=== PATIENT | female | born 1975 | race Caucasian/White ===

== ENCOUNTER 2016-07-26 14:48 | Emergency (ER) | payer MEDICARE ==
[2016-07-26 15:13] LABS: BASOPHILS 0.2 % (0-2); HEMATOCRIT 42.1 % (36.0-48.0); IMMATURE GRANULOCYTES 0.1 % (0-5); LYMPHOCYTES 34.8 % (15-50); MCHC 33.3 g/dL (31.0-37.0); MCV 90.1 fL (80.0-100.0); MEAN PLATELET VOLUME 11.4 fL (7.4-10.4); MONOCYTES 5.6 % (2-11); NEUTROPHILS 56.3 % (40-80); PLATELET COUNT 210 10x3/uL (130-400); RBC 4.67 10x6/uL (4.00-5.40); WBC 11.5 10x3/uL (4.8-10.8)
[2016-07-26 15:28] LABS: ALBUMIN 3.4 g/dL (3.4-5.0); ALKALINE PHOSPHATASE 138 U/L (46-116); ALT (SGPT) 24 U/L (10-68); BILIRUBIN - TOTAL 0.28 mg/dL (0.2-1.3); CALC OSMOLALITY 272 mosm/kg (275-300); CALCIUM 8.7 mg/dL (8.5-10.1); CARBON DIOXIDE 20.8 mmol/L (21.0-32.0); CHLORIDE - SERUM 105 mmol/L (98-107); CREATININE - SERUM 0.3 mg/dL (0.6-1.3); GLUCOSE 93 mg/dL (74-106); POTASSIUM - SERUM 3.7 mmol/L (3.5-5.1); PROTEIN - SERUM 7.7 g/dL (6.4-8.2); SODIUM 137 mmol/L (136-145); UREA NITROGEN 10 mg/dL (7-18); eGFR NON AFRICAN AMERICAN > 90 mL/min (90-120)
[2016-07-26 15:38] LABS: CHOL - HDL RATIO 4.4 ratio (2.3-4.1); CHOLESTEROL, TOTAL 172 mg/dL (0-200); CKMB 0.9 U/L (0.0-3.6); CREATINE KINASE 180 UL (21-215); HDL CHOLESTEROL 39 mg/dL (32-96)
[2016-07-26 15:39] LABS: TROPONIN-I < 0.017 ng/mL (0.000-0.060)
[2016-07-26 15:51] LABS: LDL CHOLESTEROL 102 mg/dL (0-100); LDL-HDL RATIO 2.6 ratio (1.5-3.5); TRIGLYCERIDE 159 mg/dL (30-200)
[2016-07-26 17:49] LABS: CREATINE KINASE 166 UL (21-215)
[2016-07-26 17:50] LABS: TROPONIN-I < 0.017 ng/mL (0.000-0.060)
[2016-07-26 18:21] LABS: APPEARANCE CLEAR (CLEAR); BILIRUBIN NEGATIVE (NEGATIVE); COLOR YELLOW (YELLOW); GLUCOSE NEGATIVE (NEGATIVE); KETONE NEGATIVE (NEGATIVE); LEUKOCYTE ESTERASE NEGATIVE (NEGATIVE); NITRITE NEGATIVE (NEGATIVE); PROTEIN NEGATIVE (NEGATIVE); UROBILINOGEN NORMAL (NORMAL)
[2016-07-26 18:25] LABS: UDS - AMPHET NEGATIVE QUAL (NEGATIVE); UDS - BARB NEGATIVE QUAL (NEGATIVE); UDS - BENZO POSITIVE QUAL (NEGATIVE); UDS - COCAINE NEGATIVE QUAL (NEGATIVE); UDS - METH NEGATIVE QUAL (NEGATIVE); UDS - OPIATE NEGATIVE QUAL (NEGATIVE); UDS - PCP NEGATIVE QUAL (NEGATIVE); UDS - THC POSITIVE QUAL (NEGATIVE)
[2016-07-29] MEDS ORDERED: ZOCOR40 MG PO (11:27)
[2016-07-29] MEDS ORDERED: SEROQUEL200 MG PO (11:28)
[2016-07-29] MEDS ORDERED: VALIUM10 MG PO (11:28)
[2016-07-29] MEDS ORDERED: PROZAC40 MG PO (11:29)
[2016-07-29 11:39] VITALS: BMI 33.6
== END 2016-07-26 18:52 | disposition home or self-care (01) ==
LOC: D.ER 14:48
PROVIDERS: Family Medicine
DX: R07.9 Chest pain, unspecified (principal)

== ENCOUNTER → 2016-07-29 10:44 | Outpatient (CLI) | payer MEDICARE ==
[~2016-07-29] VITALS: Ht 167.6 cm; Wt 94.5 kg
--- NOTE | ~2016-07-29 | HEMODYNAMI ---
PATIENT:JESSICA KATZ MEDICAL RECORD: [id number] : 77 LOCATION:[facility] ADMISSION DATE: 07/29/16 Generatedon:07/29/201614:10 Patient name: JESSICA KATZ Patient #: [id number] SSN: : [id number] Date of study: 07/29/2016 Page: Of Hemodynamic Procedure Report Patient Data Patient Demographics Procedure consent was obtained First Name: JESSICA Gender: Female Last Name: GIANNA : 1975 [facility] Initial: BOSSMAN Age: 41 year(s) Patient #: [id number] Race: Additional ID: [id number] Contact details Address: [address] [place] [address] State: [place] City: [facility] [place] Zip code: [address] Past Medical History Allergies Allergen Reaction Date Comments Reported Other allergy 07/29/2016 magalys cifuentes Admission Admission Data Admission Date: 07/29/2016 Admission Time: 10:44 Lab Results Lab Result Date: 07/29/2016 Lab Result Time: 11:40 Biochemistry Name Units Result Min Max BUN mg/dl 7 --(*---)-- 7 18 Creatinine mg/dl 0.8 --(-*--)-- 0.6 1.3 CBC Name Units Result Min Max Hematocrit % 41.7 -*(----)-- 42 54 Hemoglobin g/dl 14 --(*---)-- 13.5 17.5 Procedure Procedure Types Cath Procedure Diagnostic Procedure LHC LHC w/Coronaries Miscellaneous Procedures Moderate Sedation up to 15 minutes Procedure Description Procedure Date Procedure Date: 07/29/2016 Procedure Start Time: 13:59 Procedure End Time: 14:09 Procedure Staff Name Function Jt Johnson MD Performing Physician Munira Yu RT Scrub Yani Chiu RN Nurse Maximilian Bragg RT Monitor Procedure Data Cath Procedure Fluoroscopy Diagnostic fluoroscopy Total fluoroscopy Time: 1 time: 1 min min Diagnostic fluoroscopy Total fluoroscopy dose: 160 dose: 160 mGy mGy Contrast Material Contrast Material Type Amount (ml) Isovue 300 56 Entry Location Entry Primary Successful Side Size Upsize Upsize Entry Closure Succes sful Closure Location (Fr) 1 (Fr) 2 (Fr) Remarks Device Remarks Femoral Right 5 Fr Exoseal artery Estimated blood loss: 5 ml Diagnostic catheters Device Type Used For End Catheter Placement Cordis 5Fr JL 4.0 Procedure Catheter (MP) Cordis 5Fr 3DRC Catheter Procedure (MP) Cordis 5Fr Pigtail Procedure Catheter (MP) Procedure Complications No complications Procedure Medications Medication Administration Route Dosage Oxygen NC 2 l/min Heparin Flush Bag added to field 2 bags (1000units/500ml NS) Lidocaine 2% added to field 20 Versed I.V. 2 mg Fentanyl I.V. 100 mcg Versed I.V. 2 mg Fentanyl I.V. 100 mcg Versed I.V. 2 mg Fentanyl I.V. 100 mcg Versed I.V. 1 mg Fentanyl I.V. 50 mcg Hemodynamics Rest HGB: 14 (g/dl) Heart Rate: 57 (bpm) Pressure Samples Time Site Value (mmHg) Purpose Heart Use Rate(bpm) 14:04 LV 96/4,17 Snapshot 59 Gradients Valve Time Site Site Mean SEP/DFP Peak To Heart Use 1 2 (mmHg) (sec/min) Peak Rate (mmHg) (bpm) Aortic 14:05 LV AO 71 Snapshots Pre Cath Intra NCS Post Cath Vital Signs Time Heart Resp SPO2 etCO2 MT5sdss NIBP Rhythm Pain Sedation Rate (ipm) (%) (mmHg) (mmHg) (mmHg) Status Level (bpm) 13:39:50 54 16 97 0 0 100/62(74) NSR 0 (11) 10(A) , No pain 13:43:57 61 22 98 0 0 107/69(86) NSR 0 (11) 10(A) , No pain 13:48:05 64 18 98 0 0 106/69(77) NSR 0 (11) 10(A) , No pain 13:53:04 66 23 97 0 0 Measuring NSR 0 (11) 10(A) , No pain 13:53:08 65 23 97 0 0 118/69(87) NSR 0 (11) 10(A) , No pain 13:57:20 66 25 97 0 0 109/60(82) NSR 0 (11) 10(A) , No pain 14:01:28 68 18 98 0 0 107/70(87) NSR 0 (11) 10(A) , No pain 14:05:32 68 18 99 0 0 90/69(79) NSR 0 (11) 10(A) , No pain 14:10:17 68 16 96 0 0 102/71(82) NSR 0 (11) 10(A) , No pain Medications Time Medication Route Dose Verified Delivered Reason Notes Effec tiveness by by 13:48:16 Oxygen NC 2 Jt Yani Per l/min [facility] RN physician 13:48:26 Heparin Flush added 2 Jt Jt used for Bag to bags [facility] procedure (1000units/500ml field MD YUSUF NS) 13:48:34 Lidocaine 2% added 20ml Jt Jt used for to vial [facility] procedure field MD YSUUF 13:58:21 Versed I.V. 2 [facility] 13:58:26 Fentanyl I.V. 100 Jt Yani for mcg [facility] RN sedation 14:00:05 Versed I.V. 2 mg Jt Yani for [facility] RN sedation 14:00:11 Fentanyl I.V. 100 Jt Yani for mcg [facility] RN sedation 14:03:28 Versed I.V. 2 mg Jt Yani for [facility] RN sedation 14:03:34 Fentanyl I.V. 100 Jt Yani for mcg [facility] RN sedation 14:04:18 Fentanyl I.V. 50 Jt Yani for mcg [facility] RN sedation 14:05:00 Versed I.V. 1 mg Jt Yani for [facility] RN sedation Procedure Log Time Note 13:27:06 Munira Counts RT(R) sent for patient. Start room use. 13:27:07 Time tracking: Regular hours 13:27:11 Plan of Care:Hemodynamics will remain stable., Cardiac rhythm will remain stable., Comfort level will be maintained., Respiratory function will remain adequate., Patient/ family verbilizes understanding of procedure., Procedure tolerated without complication., Recovers from procedure without complications.. 13:38:39 Patient received from Pre/Post Procedure Room to CCL 1 Alert and oriented. Tansferred to table in Supine position. 13:38:40 Warm blankets applied, and lori hugger turned on for patient comfort. 13:38:40 Correct patient and procedure confirmed by team. 13:38:42 Signed procedure consent form obtained from patient. 13:38:43 ECG and BP/O2 sat monitors applied to patient. 13:38:44 Vital chart was started 13:39:00 H&P Date Dictated: 07/25/2016 Within 30 days and on chart., H&P Addendum completed by physician on day of procedure. (MUST COMPLETE FOR ALL OUTPATIENTS). 13:39:02 Pre-procedure instructions explained to patient. 13:39:03 Pre-op teaching completed and patient verbalized understanding. 13:39:04 Family in waiting room. 13:39:06 Patient NPO since Midnight. 13:45:31 Patient allergic to Other allergypcn,flagyl 13:45:33 Is the patient allergic to Iodine/contrast media? No. 13:45:34 Is patient on blood thinner?No 13:45:35 Patient diabetic? No. 13:45:38 Previous problem with sedation/anesthesia? No ? 13:45:41 Snore? Yes 13:45:42 Sleep apnea? No 13:45:43 Deviated septum? No 13:45:44 Opens mouth fully? Yes 13:45:45 Sticks out tongue? Yes 13:45:46 Airway obstruction? No ? 13:45:48 Dentures? No ? 13:45:52 Pre procedure: right dorsailis pedis pulse 2+ Normal; easily identifiable; not easily obliterated 13:45:55 Patient pain scale 6/10 ?. 13:46:04 IV patent on arrival in left forearm with 0.9% NaCl at [facility]. 13:47:53 Lab Result : BUN 7 mg/dl 13:47:53 Lab Result : Hemoglobin 14 g/dl 13:47:53 Lab Result : Creatinine 0.8 mg/dl 13:47:53 Lab Result : Hematocrit 41.7 % 13:47:56 Lab results completed and on chart. 13:47:59 Right groin area was prepped with chlora-prep and draped in sterile fashion 13:48:00 Alarms reviewed by R. N. 13:48:01 Sharps counted by scrub and verified by R.N. 13:48:03 Use device set Femoral Dx 13:48:05 Tegaderm 4 x 4 opened to sterile field. 13:48:06 Acist Manifold opened to sterile field. 13:48:07 Acist Hand Control opened to sterile field. 13:48:08 Acist Syringe opened to sterile field. 13:48:09 Bag Decanter opened to sterile field. 13:48:09 Medline Cath Pack opened to sterile field. 13:48:09 Terumo 5Fr Unity Sheath opened to sterile field. 13:48:10 St Luiz 260cm J .035 wire opened to sterile field. 13:48:11 Diagnostic Infinity 5Fr Multipack catheter opened to sterile field. 13:48:16 Oxygen 2 l/min NC was administered by Yani Chiu RN; Per physician; 13:48:21 Baseline sample Acquired. 13:48:24 Rhythm: sinus rhythm 13:48:26 Heparin Flush Bag (1000units/500ml NS) 2 bags added to field was administered by Jt Johnson MD; used for procedure; 13:48:26 Full Disclosure recording started 13:48:34 Lidocaine 2% 20ml vial added to field was administered by Jt Johnson MD; used for procedure; 13:54:51 Zero performed for pressure channel P1 13:57:03 Physician arrived 13:57:04 --------ALL STOP TIME OUT------ 13:57:04 Final Timeout: patient, procedure, and site verified with staff and physician. All members of the team are in agreement. 13:57:06 Right groin site verified by team. 13:57:14 Physical assessment completed. ASA score P 2 - A patient with mild systemic disease as per Jt Johnson MD. 13:57:17 Sedation plan: IV Moderate Sedation Versed, Fentanyl 13:58:21 Versed 2 mg I.V. was administered by Yani Chiu RN; for sedation; 13:58:26 Fentanyl 100 mcg I.V. was administered by Yani Chiu RN; for sedation; 13:59:54 Procedure started. 13:59:56 Local anesthetic to right femoral artery with Lidocaine 2% by Jt Johnson MD.INITIAL ACCESS ONLY 14:00:03 A 5 Fr sheath was inserted into the Right Femoral artery 14:00:05 Versed 2 mg I.V. was administered by Yani Chui RN; for sedation; 14:00:11 Fentanyl 100 mcg I.V. was administered by Yani Chiu RN; for sedation; 14:01:08 A Cordis 5Fr JL 4.0 Catheter (MP) was advanced over the wire and used for Procedure. 14:01:30 LCA angiography performed. 14:02:35 Catheter exchanged over wire. 14:02:40 A Cordis 5Fr 3DRC Catheter (MP) was advanced over the wire and used for Procedure. 14:03:28 Versed 2 mg I.V. was administered by Yani Cihu RN; for sedation; 14:03:34 Fentanyl 100 mcg I.V. was administered by Yani Chiu RN; for sedation; 14:03:48 RCA angiography performed. 14:03:53 Catheter exchanged over wire. 14:03:57 A Cordis 5Fr Pigtail Catheter (MP) was advanced over the wire and used for Procedure. 14:04:18 Fentanyl 50 mcg I.V. was administered by Yani hCiu RN; for sedation; 14:05:00 Versed 1 mg I.V. was administered by Yani Chiu RN; for sedation; 14:05:01 LV gram done using HICKMAN 14:05:04 Injector settings: Ml/sec: 10, Volume: 20, 14:05:09 EF : 60 % 14:05:26 Catheter removed. 14:05:33 Cordis 5Fr Exoseal opened to sterile field. 14:05:40 Sheath removed intact; hemostasis achieved with Exoseal to the Right Femoral artery. 14:05:44 Procedure ended.(Physican Out) 14:06:47 Fluoroscopy time 01.00 minutes. 14:06:51 Fluoroscopy dose: 160 mGy 14:06:51 Flurop Dose total: 160 14:08:15 Contrast amount:Isovue 300 56ml. 14:08:17 Sharps counted by scrub and verified by R.N. 14:08:24 Insertion/operative site no bleeding no hematoma. 14:08:26 Post-op/insertion site Right Femoral artery dressed using a 4 x 4 and Tegaderm. 14:08:31 Post right femoral artery:stable, soft, clean and dry 14:08:32 Post Procedure Pulses reassessed and unchanged 14:08:35 Post-procedure physical assessment completed. ASA score P 2 - A patient with mild systemic disease as per Jt Johnson MD. 14:08:39 Post procedure rhythm: unchanged. 14:08:42 Estimated blood loss: 5 ml 14:08:44 Post procedure instruction explained to patient.Patient verbalizes understanding. 14:08:44 Patient needs reinforcement of post procedure teaching. 14:08:54 Procedure type changed to Cath procedure, Diagnostic procedure, LHC, LHC w/Coronaries, Miscellaneous Procedures, Moderate Sedation up to 15 minutes 14:09:14 Procedure and supply charges have been captured, reviewed, submitted and are correct. 14:09:17 Procedure Complication : No complications 14:09:19 Vital chart was stopped 14:09:21 See physician's report for complete and final results. 14:09:24 Report given to Pre/Post Procedure Room. 14:09:26 Patient transfered to Pre/Post Procedure Room with Stretcher. 14:09:28 Procedure ended. 14:09:28 Full Disclosure recording stopped 14:09:40 End room use (Document Last) Device Usage Item Name Manufacture Quantity Catalog Hospital Part Current Minimal Lo t# / Number Charge Number Stock Stock Serial# Code Tegaderm 4 3M 1 [id number] [id number] [id number] 5 x 4 Acist Acist 1 13394 146997 343411 548758 5 Manifold [employer] Acist Hand Acist 1 08514 490354 883342 641835 5 Control [employer] Inc Acist Acist 1 63233 910602 516742 786917 20 Syringe [employer] Bag Microtek 1 2002S 704366 82301 575747 5 Decanter [employer] Medline Cardinal 1 [id number] 177323 17859 935412 5 Cath Pack Health Terumo 5Fr Terumo 1 [id number] 252034 497485 534068 [address] [facility] Luiz 1 639151 188398 237626 609259 30 260cm J .035 wire Diagnostic Cardinal 1 [id number] 328123 61558 290741 30 My Own Crown 5Fr Multipack catheter Cordis 5Fr Cardinal 1 887355 5 JL 4.0 Health Catheter (MP) Cordis 5Fr Cardinal 1 122154 5 3DRC Health Catheter (MP) Cordis 5Fr Cardinal 1 766147 5 Pigtail Health Catheter (MP) Cordis 5Fr Cardinal 1 EX500 992478 961451 366948 10 [facility] Health Signature Audit [place] Stage Time Signature Unsigned Intra-Procedure 07/29/2016 Maximilian Bragg 2:10:51 PM RT(R) Signatures Monitor : Maximilian Bragg RT Signature : Date : Time : [address] [place] [address]
--- NOTE | ~2016-07-29 | OP ---
PATIENT NAME: JESSICA KATZ MEDICAL RECORD: [id number] :77 LOCATION:D.CAT ADMISSION DATE: SURGEON: CASSIE CALHOUN MD DATE OF OPERATION: 07/29/2016 PROCEDURE: Left heart catheterization, selective coronary angiography, right femoral approach. CATHETERS: A 5-Comoran sheath, 5/4 left and right Torri, 5/4 pig. The procedure was well tolerated. The patient returned to the macias, sheath removed. Adequate hemostasis obtained. FINDINGS: Left ventriculography in 30-degree HICKMAN view: Normal wall motion, normal systolic function. CORONARY ANATOMY: Left main: Left main is free of disease. LAD: LAD is free of disease in the diagonal system. CIRCUMFLEX: Circumflex is free of disease in the marginal system. RIGHT CORONARY ARTERY: Dominant artery, gives rise to PDA, free of disease. IMPRESSION: Normal systolic function. Normal coronary anatomy. No evidence of obstructive coronary artery disease, noncardiac chest pain. TRANSINT:[id number] Voice Confirmation ID: [id number] DOCUMENT ID: [id number] CASSIE CALHOUN MD CC: [id number] DICTATION DATE: 07/29/161409 UTILITY WORKER: 07/29/16 2349 DEP CLI 07/29/16 [facility] [address] [place] [address]
[~2016-07-29 10:44] MED LIST: PROZAC40 MG PO; SEROQUEL200 MG PO; VALIUM10 MG PO; ZOCOR40 MG PO
[2016-07-29 11:39] VITALS: BP 115/78; Ht 167.6 cm; Wt 94.5 kg
[2016-07-29 11:56] LABS: BASOPHILS 0.3 % (0-2); EOSINOPHILS 4.1 % (0-7); HEMATOCRIT 41.7 % (36.0-48.0); IMMATURE GRANULOCYTES 0.1 % (0-5); LYMPHOCYTES 38.2 % (15-50); MCHC 33.6 g/dL (31.0-37.0); MCV 89.3 fL (80.0-100.0); MEAN PLATELET VOLUME 11.4 fL (7.4-10.4); MONOCYTES 5.2 % (2-11); NEUTROPHILS 52.1 % (40-80); PLATELET COUNT 203 10x3/uL (130-400); RBC 4.67 10x6/uL (4.00-5.40); RDW 14.2 % (11.5-14.5); WBC 7.3 10x3/uL (4.8-10.8)
[2016-07-29 12:09] LABS: CALC OSMOLALITY 280 mosm/kg (275-300); CARBON DIOXIDE 25.1 mmol/L (21.0-32.0); CHLORIDE - SERUM 106 mmol/L (98-107); CREATININE - SERUM 0.8 mg/dL (0.6-1.3); GLUCOSE 99 mg/dL (74-106); SODIUM 142 mmol/L (136-145); UREA NITROGEN 7 mg/dL (7-18); eGFR NON AFRICAN AMERICAN 84 mL/min (90-120)
--- NOTE | 2016-07-29 14:40 | NUR ---
ROOM AIR, NO RESP DISTRESS NOTED. RIGHT GROIN 5F EXOSEAL CDI, NO BLEEDING OR HEMATOMA NOTED. NO C/O CHEST PAIN OR NAUSEA. INSTRUCTED PT TO KEEP HEAD FLAT ON PILLOW AND RIGHT LEG STRAIGHT.
--- NOTE | 2016-07-29 15:10 | NUR ---
RESTING QUIETLY. ROOM AIR, NO RESP DISTRESS NOTED. RIGHT GROIN 5F EXOSEAL CDI, NO BLEEDING OR HEMATOMA NOTED. NO C/O CHEST PAIN OR NAUSEA. AT BEDSIDE, CALL LIGHT WITHIN REACH.
--- NOTE | 2016-07-29 15:25 | NUR ---
ROOM AIR, NO RESP DISTRESS NOTED. RIGHT GROIN 5F EXOSEAL CDI, NO BLEEDING OR HEMATOMA NOTED. NO C/O CHEST PAIN. VSS.
--- NOTE | 2016-07-29 16:03 | NUR ---
HOB ELEVATED 30 DEGREES. RIGHT GROIN 5F EXOSEAL CDI, NO BLEEDING OR HEMATOMA NOTED. SANDWICH TRAY AND DRINK GIVEN.
--- NOTE | 2016-07-29 16:22 | NUR ---
LEFT FA PIV D/C'D WITH CATHETER INTACT, BAND AID TO SITE. UP TO BEDSIDE TO GET DRESSED.
--- NOTE | 2016-07-29 16:28 | NUR ---
UP TO RESTROOM TO VOID.
--- NOTE | 2016-07-29 16:34 | NUR ---
DISCHARGE INSTRUCTIONS GIVEN, VERBALIZED UNDERSTANDING.
--- NOTE | 2016-07-29 16:40 | NUR ---
TAKEN OUT VIA WHEELCHAIR BY CATH ASSISTANT COMMUNITY DIRECTOR. LEFT FACILITY WITH FAMILY MEMBER AND ALL PERSONAL BELONGINGS.
== END | disposition home or self-care (01) ==
LOC: D.CATH 10:44
PROVIDERS: Internal Medicine Interventional Cardiology
DX: R07.89 Other chest pain (principal)

== ENCOUNTER 2016-08-30 02:54 | Emergency (ER) | payer MEDICARE ==
[2016-07-29 11:39] VITALS: BMI 33.6
== END 2016-08-30 05:53 | disposition home or self-care (01) ==
LOC: D.ER 02:54
DX: S02.2XXA Fracture of nasal bones, initial encounter for closed fracture (principal); Y00.XXXA Assault by blunt object, initial encounter; S09.90XA Unspecified injury of head, initial encounter; F17.200 Nicotine dependence, unspecified, uncomplicated

== ENCOUNTER 2017-02-13 11:27 | Emergency (ER) | payer MEDICARE ==
[2016-07-29 11:39] VITALS: BMI 33.6
[2017-02-13 11:57] LABS: BASOPHILS 0.1 % (0-2); EOSINOPHILS 1.1 % (0-7); HEMATOCRIT 45.8 % (36.0-48.0); HEMOGLOBIN 15.7 g/dL (12-16); IMMATURE GRANULOCYTES 0.2 % (0-5); MCH 29.6 pg (26.0-34.0); MCHC 34.3 g/dL (31.0-37.0); MCV 86.4 fL (80.0-100.0); MEAN PLATELET VOLUME 11.7 fL (7.4-10.4); MONOCYTES 3.8 % (2-11); NEUTROPHILS 68.8 % (40-80); RDW 14.6 % (11.5-14.5); WBC 9.3 10x3/uL (4.8-10.8)
[2017-02-13 11:59] LABS: PLATELET COUNT 247 10x3/uL (130-400)
[2017-02-13 12:19] LABS: ALBUMIN 4.3 g/dL (3.4-5.0); ANION GAP 16.9 mmol/L (8-16); BILIRUBIN - TOTAL 0.31 mg/dL (0.2-1.3); CALCIUM 9.9 mg/dL (8.5-10.1); CREATININE - SERUM 0.9 mg/dL (0.6-1.3); MAGNESIUM - SERUM 2.1 mg/dL (1.8-2.4); POTASSIUM - SERUM 3.9 mmol/L (3.5-5.1); PROTEIN - SERUM 8.5 g/dL (6.4-8.2)
[2017-02-13 12:33] LABS: APPEARANCE HAZY (CLEAR); BACTERIA MODERATE /hpf (NONE SEEN); BILIRUBIN NEGATIVE (NEGATIVE); COLOR YELLOW (YELLOW); GLUCOSE NEGATIVE (NEGATIVE); KETONE MODERATE mg/dL (NEGATIVE); MUCUS <1+ /lpf (NONE SEEN); NITRITE NEGATIVE (NEGATIVE); PROTEIN NEGATIVE (NEGATIVE); RED CELLS - URINE 0-5 /hpf (0-5); UROBILINOGEN NORMAL (NORMAL)
== END 2017-02-13 13:07 | disposition home or self-care (01) ==
LOC: D.ER 11:27
PROVIDERS: Emergency Medicine
DX: R11.10 Vomiting, unspecified (principal); R10.9 Unspecified abdominal pain; R19.7 Diarrhea, unspecified; N39.0 Urinary tract infection, site not specified; N76.0 Acute vaginitis; F17.200 Nicotine dependence, unspecified, uncomplicated

== ENCOUNTER 2017-08-20 22:16 | Emergency (ER) | payer MEDICARE, MEDICAID ==
[~2017-08-20] VITALS: Ht 167.6 cm; Wt 95.9 kg
[2017-08-20 22:55] VITALS: Ht 167.6 cm; Wt 95.9 kg
[2017-08-20] MEDS ORDERED: LITHIUM CARBON300 MG PO (22:58)
[2017-08-21 01:04] LABS: BASOPHILS 0.2 % (0-2); EOSINOPHILS 2.5 % (0-7); HEMATOCRIT 37.3 % (36.0-48.0); HEMOGLOBIN 12.6 g/dL (12-16); IMMATURE GRANULOCYTES 0.2 % (0-5); LYMPHOCYTES 31.8 % (15-50); MCH 29.4 pg (26.0-34.0); MCHC 33.8 g/dL (31.0-37.0); MCV 87.1 fL (80.0-100.0); MEAN PLATELET VOLUME 11.1 fL (7.4-10.4); MONOCYTES 5.7 % (2-11); NEUTROPHILS 59.6 % (40-80); PLATELET COUNT 246 10x3/uL (130-400); RBC 4.28 10x6/uL (4.00-5.40); WBC 14.2 10x3/uL (4.8-10.8)
[2017-08-21 01:23] LABS: ALBUMIN 3.2 g/dL (3.4-5.0); ALKALINE PHOSPHATASE 141 U/L (46-116); ALT (SGPT) 25 U/L (10-68); BILIRUBIN - TOTAL 0.33 mg/dL (0.2-1.3); CALC OSMOLALITY 271 mosm/kg (275-300); CALCIUM 8.8 mg/dL (8.5-10.1); CARBON DIOXIDE 25.4 mmol/L (21.0-32.0); CHLORIDE - SERUM 106 mmol/L (98-107); CREATININE - SERUM 0.8 mg/dL (0.6-1.3); GLUCOSE 98 mg/dL (74-106); POTASSIUM - SERUM 3.9 mmol/L (3.5-5.1); PROTEIN - SERUM 7.7 g/dL (6.4-8.2); SODIUM 137 mmol/L (136-145); UREA NITROGEN 8 mg/dL (7-18); eGFR NON AFRICAN AMERICAN 84 mL/min (90-120)
[2017-08-21 01:24] LABS: CREATINE KINASE 310 UL (21-215)
[2017-08-21 01:32] LABS: TROPONIN-I < 0.017 ng/mL (0.000-0.060)
[2017-08-21 02:17] LABS: CKMB 0.3 U/L (0.0-3.6)
[2017-08-21] MEDS ORDERED: TORADOL10 MG PO (03:02)
[2017-08-21 03:39] VITALS: BP 127/68
== END 2017-08-21 03:38 | disposition home or self-care (01) ==
LOC: D.ER 22:16
PROVIDERS: Family Medicine
DX: R09.1 Pleurisy (principal); F17.200 Nicotine dependence, unspecified, uncomplicated

== ENCOUNTER 2017-09-25 19:41 | Emergency (ER) | payer MEDICARE, MEDICAID ==
[~2017-09-25] VITALS: Ht 167.6 cm; Wt 65.9 kg
[~2017-09-25 19:41] MED LIST changes: +LITHIUM CARBON300 MG PO; +TORADOL10 MG PO
[2017-09-25 19:57] VITALS: Ht 167.6 cm; Wt 65.9 kg
[2017-09-25] MEDS ORDERED: HYDROCODONE-APA1 TAB PO (23:09)
[2017-09-25 23:36] VITALS: BP 130/88
== END 2017-09-25 23:38 | disposition home or self-care (01) ==
LOC: D.ER 19:41
DX: S92.351A Displaced fracture of fifth metatarsal bone, right foot, initial encounter for closed fracture (principal); S92.412A Displaced fracture of proximal phalanx of left great toe, initial encounter for closed fracture; W10.9XXA Fall (on) (from) unspecified stairs and steps, initial encounter; Y93.89 Activity, other specified; Y92.019 Unspecified place in single-family (private) house as the place of occurrence of the external cause; F17.200 Nicotine dependence, unspecified, uncomplicated

== ENCOUNTER 2017-10-05 19:54 | Emergency (ER) | payer MEDICARE, MEDICAID ==
[~2017-10-05] VITALS: Ht 167.6 cm; Wt 97.7 kg
[~2017-10-05 19:54] MED LIST changes: +HYDROCODONE-APA1 TAB PO
[2017-10-05 20:12] VITALS: Ht 167.6 cm; Wt 97.7 kg
[2017-10-05] MEDS ORDERED: TYLENOL W/CODEI1 TAB PO ×2 (20:53→21:15)
[2017-10-05] MEDS ORDERED: ZOFRAN ODT4 MG/UDTAB PO ×2 (20:53→21:15)
[2017-10-05 21:11] VITALS: BP 133/89
== END 2017-10-05 21:19 | disposition home or self-care (01) ==
LOC: D.ER 19:54
DX: S92.902G Unspecified fracture of left foot, subsequent encounter for fracture with delayed healing (principal); S92.901G Unspecified fracture of right foot, subsequent encounter for fracture with delayed healing; X58.XXXD Exposure to other specified factors, subsequent encounter; Z76.0 Encounter for issue of repeat prescription

== ENCOUNTER 2017-12-14 12:56 | Emergency (ER) | payer MEDICARE, MEDICAID ==
[~2017-12-14] VITALS: Ht 167.6 cm; Wt 100.0 kg
[~2017-12-14 12:56] MED LIST changes: +TYLENOL W/CODEI1 TAB PO; +ZOFRAN ODT4 MG/UDTAB PO
[2017-12-14 12:59] VITALS: Ht 167.6 cm; Wt 100.0 kg
[2017-12-14] MEDS ORDERED: TORADOL10 MG PO (14:59)
[2017-12-14 16:02] VITALS: BP 114/80
== END 2017-12-14 16:06 | disposition home or self-care (01) ==
LOC: D.ER 12:56
DX: S93.602A Unspecified sprain of left foot, initial encounter (principal); X50.1XXA Overexertion from prolonged static or awkward postures, initial encounter; Y93.89 Activity, other specified; Y92.89 Other specified places as the place of occurrence of the external cause

== ENCOUNTER 2017-12-30 13:17 | Emergency (ER) | payer MEDICARE, MEDICAID ==
[~2017-12-30] VITALS: Ht 167.6 cm; Wt 100.0 kg
[2017-12-30 13:19] VITALS: Ht 167.6 cm; Wt 100.0 kg
[2017-12-30 14:28] LABS: APPEARANCE CLEAR (CLEAR); BACTERIA FEW /hpf (NONE SEEN); BILIRUBIN NEGATIVE (NEGATIVE); COLOR YELLOW (YELLOW); EPITHELIAL CELLS 0-5 /hpf (0-5); GLUCOSE NEGATIVE (NEGATIVE); KETONE NEGATIVE (NEGATIVE); MUCUS <1+ /lpf (NONE SEEN); NITRITE NEGATIVE (NEGATIVE); PROTEIN NEGATIVE (NEGATIVE); UROBILINOGEN NORMAL (NORMAL); WHITE CELLS - URINE OCC /hpf (0-5)
[2017-12-30 14:39] LABS: ALBUMIN 2.9 g/dL (3.4-5.0); ALKALINE PHOSPHATASE 121 U/L (46-116); ALT (SGPT) 38 U/L (10-68); BILIRUBIN - TOTAL 0.26 mg/dL (0.2-1.3); CALC OSMOLALITY 277 mosm/kg (275-300); CALCIUM 8.3 mg/dL (8.5-10.1); CHLORIDE - SERUM 106 mmol/L (98-107); CREATININE - SERUM 0.8 mg/dL (0.6-1.3); GLUCOSE 87 mg/dL (74-106); POTASSIUM - SERUM 3.9 mmol/L (3.5-5.1); PROTEIN - SERUM 6.3 g/dL (6.4-8.2); SODIUM 141 mmol/L (136-145); UREA NITROGEN 8 mg/dL (7-18); eGFR NON AFRICAN AMERICAN 84 mL/min (90-120)
[2017-12-30 14:58] LABS: BASOPHILS 0.2 % (0-2); EOSINOPHILS 2.1 % (0-7); HEMOGLOBIN 12.6 g/dL (12-16); IMMATURE GRANULOCYTES 0.4 % (0-5); LYMPHOCYTES 36.9 % (15-50); MCH 29.3 pg (26.0-34.0); MCHC 33.2 g/dL (31.0-37.0); MCV 88.4 fL (80.0-100.0); MEAN PLATELET VOLUME 11.3 fL (7.4-10.4); NEUTROPHILS 55.4 % (40-80); PLATELET COUNT 204 10x3/uL (130-400); RDW 14.6 % (11.5-14.5); WBC 11.2 10x3/uL (4.8-10.8)
[2017-12-30] MEDS ORDERED: VOLTAREN75 MG PO (15:55)
[2017-12-30] MEDS ORDERED: TYLENOL W/CODEI1 TAB PO (15:55)
[2017-12-30 16:20] VITALS: BP 121/74
== END 2017-12-30 16:21 | disposition home or self-care (01) ==
LOC: D.ER 13:17
PROVIDERS: Emergency Medicine
DX: R10.9 Unspecified abdominal pain (principal); M54.5 Low back pain; M79.672 Pain in left foot; F17.200 Nicotine dependence, unspecified, uncomplicated

== ENCOUNTER 2018-03-08 09:23 | Emergency (ER) | payer MEDICARE, MEDICAID ==
[~2018-03-08] VITALS: Ht 167.6 cm; Wt 104.5 kg
[~2018-03-08 09:23] MED LIST changes: +VOLTAREN75 MG PO
[2018-03-08 09:38] VITALS: Ht 167.6 cm; Wt 104.5 kg
[2018-03-08 10:50] LABS: APPEARANCE CLEAR (CLEAR); BILIRUBIN NEGATIVE (NEGATIVE); COLOR YELLOW (YELLOW); EPITHELIAL CELLS 0-5 /hpf (0-5); GLUCOSE NEGATIVE (NEGATIVE); KETONE NEGATIVE (NEGATIVE); NITRITE NEGATIVE (NEGATIVE); PROTEIN TRACE mg/dL (NEGATIVE); RED CELLS - URINE 0-5 /hpf (0-5); WHITE CELLS - URINE 0-5 /hpf (0-5)
[2018-03-08 10:51] LABS: BACTERIA MANY /hpf (NONE SEEN); MUCUS <1+ /lpf (NONE SEEN)
[2018-03-08] MEDS ORDERED: VIBRAMYCIN 100100 MG PO (11:26)
[2018-03-08] MEDS ORDERED: VENTOLIN HFA18 GM INH (11:26)
[2018-03-08] MEDS ORDERED: PHENERGAN DM SYR5 ML PO (11:26)
[2018-03-08] MEDS ORDERED: PREDNISONE20 MG PO (11:26)
[2018-03-08 12:01] VITALS: BP 124/74
== END 2018-03-08 12:02 | disposition home or self-care (01) ==
LOC: D.ER 09:23
PROVIDERS: Emergency Medicine
DX: R50.9 Fever, unspecified (principal); R30.0 Dysuria; R05 Cough